=== PATIENT | female | born 1985 | race African-American/Black ===

== ENCOUNTER 2016-07-26 00:50 | Emergency (ER) | payer OTHER ==
[~2016-07-26] VITALS: Ht 157.5 cm; Wt 61.7 kg
[2016-07-26] MEDS ORDERED: DIPHTH,PERTUSS(ACELL),TET TOX 0.5 ML DISP.SYRIN. VAX IM ONE (01:45)
[2016-07-26] MEDS ORDERED: KETOROLAC TROMETHAMINE 60 MG/2 ML SYRINGE. IM ONE (01:45)
[2016-07-26] MEDS ORDERED: IBUP-1060 PO (01:59)
--- NOTE | 2016-07-26 01:59 | PHYS DOC ---
Past Medical History Past Medical History: Asthma, Depression Past Surgical History: Cholecystectomy, Other Additional Past Surgical Histo: lt ear Alcohol Use: Occasionally Drug Use: None Adult General Chief Complaint Chief Complaint: FOOT INJURY PAIN HPI HPI 30-year-old female presents after hitting her left foot on a piece of metal and has a small skin tear to the dorsum of her left foot at the base of her third metatarsal. She states she is had difficulty bearing weight on her left foot secondary to pain. She denies any medial or lateral malleolar tenderness. She denies any pain anywhere else in her leg. She states her pain is all localized to the dorsum of the foot along the area of the skin tear. She rates her pain an 8/10 on the pain scale. Review of Systems Review of Systems Constitutional: Denies fever or chills [] Eyes: Denies change in visual acuity, redness, or eye pain [] HENT: Denies nasal congestion or sore throat [] Respiratory: Denies cough or shortness of breath [] Cardiovascular: No additional information not addressed in HPI [] GI: Denies abdominal pain, nausea, vomiting, bloody stools or diarrhea [] : Denies dysuria or hematuria [] Musculoskeletal: Denies back pain, has joint pain [] Integument: Denies rash or skin lesions [] Neurologic: Denies headache, focal weakness or sensory changes [] Endocrine: Denies polyuria or polydipsia [] Current Medications Current Medications Current Medications Medications (Trade) Dose Ordered Sig/Roshni Start Time Stop Time Status Last Admin Dose Admin Diphtheria/ Tetanus/Acell Pertussis (Boostrix) 0.5 ml ONCE ONCE 07/26/16 01:45 07/26/16 01:46 DC 07/26/16 02:00 0.5 ML Ketorolac Tromethamine (Toradol Im) 60 mg 1X ONCE 07/26/16 01:45 07/26/16 01:46 DC 07/26/16 01:59 60 MG Allergies Allergies Allergies Coded Allergies Type Severity Reaction Last Updated Verified procaine Allergy Mild 09/25/14 Yes Physical Exam Physical Exam Constitutional: Well developed, well nourished, no acute distress, non-toxic appearance. [] HENT: Normocephalic, atraumatic, bilateral external ears normal, oropharynx moist, no oral exudates, nose normal. [] Eyes: PERRLA, EOMI, conjunctiva normal, no discharge. [] Neck: Normal range of motion, no tenderness, supple, no stridor. [] Cardiovascular:Heart rate regular rhythm, no murmur [] Lungs & Thorax: Bilateral breath sounds clear to auscultation [] Abdomen: Bowel sounds normal, soft, no tenderness, no masses, no pulsatile masses. [] Skin: Warm, dry, no erythema, no rash. [] Back: No tenderness, no CVA tenderness. [] Extremities: Moderate tenderness to the dorsum of the left foot with a small skin tear at the base of the third metatarsal, no cyanosis, no clubbing, ROM intact, no edema. [] Neurologic: Alert and oriented X 3, normal motor function, normal sensory function, no focal deficits noted. [] Psychologic: Affect normal, judgement normal, mood normal. [] Current Patient Data Vital Signs Vital Signs Date Time Temp Pulse Resp B/P Pulse Ox O2 Delivery O2 Flow Rate FiO2 07/26/16 02:05 72 16 105/61 100 Room Air 07/26/16 01:01 98.5 98.5 EKG EKG [] Radiology/Procedures Radiology/Procedures Left foot films as interpreted by me did not reveal any retained foreign body or acute fracture. [] Course & Med Decision Making Course & Med Decision Making Pertinent Labs and Imaging studies reviewed. (See chart for details) This 30-year-old female had negative films of her left foot for any acute abnormalities. Placed patient in a postop shoe and gave her an injection of IM Toradol and updated her tetanus. I gave her strict instructions to keep the extremity elevated and remain nonweightbearing for the next several days and to let the inflammation subside and then to follow with her primary care doctor to make sure her symptoms have resolved. She is very agreeable with this plan and was discharged without incident. Dragon Disclaimer Dragon Disclaimer This electronic medical record was generated, in whole or in part, using a voice recognition dictation system. Departure Departure Impression: Primary Impression: Injury of left foot Disposition: HOME, SELF-CARE Condition: STABLE Referrals: NO PCP (PCP) Patient Instructions: Foot Contusion Additional Instructions: Please keep the extremity elevated and take motrin as needed for your symptoms. Remain non-weight bearing as much as possible for the next 2-3 days. Return to the ER if you develop any worsening of your symptoms. Scripts Ibuprofen 800 Mg [id number] Mg PO PRN Q6HRS PRN INFLAMMATION #20 TAB Prov:RENETTA LANDA DO 07/26/16 RENETTA LANDA DO Jul 26, 2016 01:59
[2016-07-26 02:05] VITALS: BP 105/61
--- NOTE | 2016-07-26 07:58 | RAD ---
Left foot radiographs History: Fall, foot pain. Comparison: None. Findings: AP, lateral, and oblique views of the left foot. No acute fracture or dislocation is identified. Impression: No acute osseous traumatic injury identified.
== END 2016-07-26 02:10 | disposition home or self-care (01) ==
LOC: ER 00:50
DX: S91.312A Laceration without foreign body, left foot, initial encounter (principal); F32.9 Major depressive disorder, single episode, unspecified; J45.909 Unspecified asthma, uncomplicated; Z88.4 Allergy status to anesthetic agent; W22.8XXA Striking against or struck by other objects, initial encounter; Y93.89 Activity, other specified; Y92.89 Other specified places as the place of occurrence of the external cause; Y99.8 Other external cause status
CPT/HCPCS: 73630; 90471; 90715; 96372; 99284; J1885